=== PATIENT | female | born 1965 | race Two or more races ===

== ENCOUNTER 2021-06-05 17:09 | Emergency (ER) | payer SELFPAY ==
[~2021-06-05] VITALS: Ht 165.1 cm; Wt 170.0 kg
[2021-06-05] MEDS ORDERED: INSU100I24 SQ (19:33)
[2021-06-05 19:40] VITALS: BP 164/85
== END 2021-06-05 20:21 | disposition left against medical advice (07) ==
LOC: ER 17:09
DX: E11.65 Type 2 diabetes mellitus with hyperglycemia (principal); I11.0 Hypertensive heart disease with heart failure; I50.9 Heart failure, unspecified; E78.00 Pure hypercholesterolemia, unspecified; Z76.0 Encounter for issue of repeat prescription
CPT/HCPCS: 82962; 99283